=== PATIENT | male | born 1980 | race Caucasian/White ===

== ENCOUNTER 2017-09-14 20:59 | Emergency (ER) | payer OTHER, SELFPAY ==
[2017-09-14 21:10] VITALS: BP 166/88; PULSE 92; RESP 15; TEMP 36.8; O2SAT 97
[2017-09-14 21:18] VITALS: BP 166/88; PULSE 90; PULSE 92; RESP 15; TEMP 36.8; O2SAT 97
--- NOTE | 2017-09-14 21:52 | ED.LOWEXIN ---
HPI - Extremity Injury (Lower) General Chief Complaint: Extremity Injury, Lower Stated Complaint: RIGHT KNEE,HEARD A POP Time Seen by Provider: 09/14/17 21:24 Source: patient Mode of arrival: ambulatory Limitations: no limitations History of Present Illness HPI Narrative: 37-year-old otherwise healthy male here for evaluation of right knee pain. Patient states that earlier this evening he was working under his truck and he rolled over and got on his hands and knees. He states that his right knee ?went out? which he states happens occasionally. He states that this normally happens in his left knee. He states that when this happens in the past it normally improves after a short period of time. He states that it has improved somewhat but is still having discomfort on the anterior portion of his knee. No prior injury to the knee. Related Data Allergies Allergy/AdvReac Type Severity Reaction Status Date / Time No Known Drug Allergies Allergy Verified 09/14/17 21:10 Review of Systems Constitutional Denies chills, Denies fever(s), Denies lethargy and Denies weakness Musculoskeletal Comments: Right knee pain Integumentary/Breasts Denies pruritus, Denies erythema, Denies rash and Denies wounds Neurologic Denies weakness Comments: Some tingling in his right foot Hematologic/Lymphatic Denies easy bruising [facility] Social History Smoking Status: Current every day smoker Exam Initial Vital Signs Initial Vital Signs: Vital Signs Temperature 98.2 F 09/14/17 21:10 Pulse Rate 92 H 09/14/17 21:10 Respiratory Rate 15 09/14/17 21:10 Blood Pressure 166/88 H 09/14/17 21:10 Pulse Oximetry 97 09/14/17 21:10 Skin General: no rashes or lesions noted, No jaundice and No petechiae Neuro Other: Sensation intact to light touch right lower extremity Extrem Other: Right hip unremarkable Right thigh unremarkable Patient with tenderness to palpation over the quadriceps tendon however no deficit felt on the exam. Patient is able to do a straight leg raise No tenderness to palpation over the patella tendon No tenderness to palpation medial lateral joint line No instability with functional testing of ACL PCL MCL and LCL Some tenderness to palpation over the lateral hamstrings. Right calf unremarkable Right proximal fibula unremarkable Right foot unremarkable Right ankle unremarkable Course Vital Signs - 8 hr 09/14/17 21:10 09/14/17 21:18 Temperature 98.2 F 98.2 F Pulse Rate 92 H 92 H Pulse Rate [Right Dorsalis Pedis] 90 Respiratory Rate 15 15 Blood Pressure 166/88 H 166/88 H Pulse Oximetry 97 97 MDM - Extremity Injury (Lower) MDM Narrative Medical decision making narrative: Patient without stability issues. Does have tenderness to palpation over the quadriceps tendon however he is able to do a straight leg raise and I do not feel it deficit. I did discuss this with him and the concern of potential issues with the extensor mechanisms of his knee. Will hold on any x-rays for now as I have low suspicion for a fracture. We discussed care instructions. He is going to give his knee a couple days to see if the symptoms do not improve. He was instructed that if he develops new symptoms or if his knee becomes unstable or more painful that he needs [place] see Orthopedics to discuss the indications for an MRI. He expressed understanding and agreement with plan. Discharge Plan Departure Patient Disposition: Home, Self-Care Clinical Impression: Injury of knee, right Discharge Date/Time: 09/14/17 22:08 Interventions: ED Discharge Assessment Last Done: 09/14/17 22:08 Instructions: How To Perform RICE (Rest, Ice, Compress, Elevate) Activity Restrictions/Additional Instructions: Would recommend that for the next couple days you avoid activities where you are squatting down. You can I series knee as needed. If the pain or swelling persist after the next couple days I would contact your medical department for referral to Orthopedics for further evaluation.
== END 2017-09-14 22:08 | disposition home or self-care (01) ==
PROVIDERS: Emergency Provider Emergency Medicine
DX: S89.91XA Unspecified injury of right lower leg, initial encounter (principal); W22.09XA Striking against other stationary object, initial encounter
CPT/HCPCS: 99282